=== PATIENT | male | born 1990 | race Caucasian/White ===

== ENCOUNTER 2017-07-27 22:06 | Emergency (ER) | payer MEDICAID, SELFPAY ==
[2017-07-27 22:07] VITALS: BP 144/76; PULSE 108; RESP 16; TEMP 36.4; O2SAT 100; BMI 19.8
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
[2017-07-27] MEDS: HYDROcodone Bitartrate/Apap 5/325 Tablet PO (22:52)
== END 2017-07-27 23:20 | disposition home or self-care (01) ==
PROVIDERS: Emergency Provider Emergency Medicine; Family Provider Nurse Practitioner Primary Care; PCP Nurse Practitioner Primary Care
DX: S13.4XXA Sprain of ligaments of cervical spine, initial encounter (principal); F32.9 Major depressive disorder, single episode, unspecified; Z79.899 Other long term (current) drug therapy; V47.1XXA Car passenger injured in collision with fixed or stationary object in nontraffic accident, initial encounter; Y93.I9 Activity, other involving external motion; Y92.410 Unspecified street and highway as the place of occurrence of the external cause; Y99.8 Other external cause status
CPT/HCPCS: 70450; 72125; 99283

== ENCOUNTER 2017-10-08 21:29 | Emergency (ER) | payer MEDICAID, SELFPAY ==
[2017-10-08 21:30] VITALS: BP 125/72; PULSE 103; RESP 18; TEMP 37.1; O2SAT 100; BMI 17.1
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
[2017-10-08] MEDS: HYDROmorphone 1 MG/ML Syringe IV (22:14)
[2017-10-08] MEDS: proMETHazine 25 MG/ML Syringe 6.25 MG IV (22:14)
[2017-10-08] MEDS: 0.9% Normal Saline 1,000 ML 1000 ML IV (22:14)
[2017-10-08 22:28] LABS: Absolute Lymphocyte Count 3.66 X10^3/ul (0.83-4.51); Absolute Neutrophil Count 5.4 X10^3/uL (2.0-7.7); Basophil# 0.02 X10^3/uL; Basophil% 0.2 % (0-1); Eosinophil# 0.26 X10^3/uL; Eosinophils% 2.5 % (0-5); Hematocrit 44.6 % (40-54); Hemoglobin 16.3 g/dl (13.0-16.5); Lymphocyte # 3.66 X10^3/ul (4.0); Lymphocyte % 35.5 % (19-41); Mean Corp Hgb Conc 36.5 g/gl (32-36); Mean Corpuscular Hgb 30.1 pg (27.0-32.0); Mean Corpuscular Volume 82.3 fL (80-94); Mean Platelet Vol. 10.3 fl (6.2-12.0); Monocyte# 0.92 X10^3/uL; Monocyte% 8.9 % (0-10); Neutrophil # 5.44 X10^3/uL (2.7-7.7); Neutrophil % 52.8 % (47-70); Platelet Count 302 K/mm3 (150-450); RBC Distribution Width CV 12.6 % (11.6-14.6); RBC Distribution Width SD 37.7 fl (35.1-43.9); Red Blood Count 5.42 M/mm3 (4.6-6.2); White Blood Count 10.3 K/mm3 (4.4-11.0)
[2017-10-08 22:30] LABS: POSITIVE COUNT NO; POSITIVE DIFFERENTIAL NO; POSITIVE MORPHOLOGY NO
[2017-10-08 22:56] LABS: ALB/GLOB Ratio 1.4 RATIO (0.9-2.4); AST(SGOT) 10 U/L (15-37); Alanine Aminotransfer ALT/SGPT 18 U/L (16-61); Albumin, Serum 4.6 g/dL (3.2-5.0); Alkaline Phosphatase 125 U/L (45-117); Anion Gap 11 (5-15); BUN 15 mg/dL (7-18); BUN/Creat Ratio 11.1 RATIO (10-20); Calcium,Total 9.5 mg/dL (8.5-10.1); Chloride 104 mmol/L (98-107); Creatinine, Serum 1.35 mg/dL (0.70-1.30); EST Glomerular Filtration Rate 67 mL/min (>60); Est Glom Filt Rate - Afr Amer 81 mL/min (>60); Estimated Creatinine Clearance 68.55 ml/min; Globulin 3.3 g/dL (2.2-4.2); Glucose 102 mg/dL (74-106); Lactic Acid 1.7 mmol/L (0.4-2.0); Lipase 158 U/L (73-393); Potassium 3.2 mmol/L (3.5-5.1); Protein, Total 7.9 g/dL (6.4-8.2); Sodium Level 137 mmol/L (136-145)
--- NOTE | 2017-10-08 23:45 | ED.DCSUM_ITS ---
- ER Visit Summary Date of Service: 10/08/17 Chief Complaint: [] Abdominal pain History of Present Illness: The patient is a 27 M [] complaining of right lower quadrant abdominal pain. Reports nausea, denies vomiting. His mother at the bedside reports that he is homosexual. Patient denies any rectal bleeding or rectal discomfort. He denies fevers. Does report snorting a line of methamphetamine right after the onset of the abdominal pain. He also reports history of panic attacks. Physical Examination: [] Afebrile, vital signs stable. 27-year-old male in no acute distress. Cardiovascular exam is regular rate and rhythm. Lungs are clear to auscultation. Abdomen is soft with right lower quadrant tenderness. No lower extremity edema. Test Results: [] CBC, BMP, LFTs, lipase all within normal limits. Potassium was the only exception at 3.2. CT flank is negative. Emergency Department Course and Treatment: [] Patient given intravenous fluids, Phenergan, Dilaudid. On serial exam had improvement of symptoms. Patient was counseled regarding his diagnostic and laboratory findings and encouraged follow-up with primary care physician. Treatment Plan: [] Follow-up with PCP. Disposition: [] Discharge, stable. Impression: [] Abdominal pain, unknown etiology This note was generated with [employer] dictation software. It may contain incorrect words, spelling, and punctuation that were not noted in review of the chart prior to signing ED Disposition - Plan for ED Patient: Chief Complaint: Flank Pain Referrals: Yoly Banks, VASILIY-C [Primary Care Provider] -
--- NOTE | 2017-10-08 23:45 | ED.DEP ---
ED Disposition - Plan for ED Patient: Disposition: Home or Assisted Living Chief Complaint: Flank Pain Instructions: Abdominal Pain Referrals: Yoly Banks NP-C [Primary Care Provider] -
[2017-10-08 23:55] VITALS: BP 122/81; PULSE 76; RESP 16; O2SAT 99
== END 2017-10-08 23:56 | disposition home or self-care (01) ==
PROVIDERS: Emergency Provider Emergency Medicine; Family Provider Nurse Practitioner Primary Care; PCP Nurse Practitioner Primary Care
DX: R10.31 Right lower quadrant pain (principal); I34.1 Nonrheumatic mitral (valve) prolapse
CPT/HCPCS: 74176; 80053; 83605; 83690; 85025; 96361; 96374; 96375; 99285; J7030; A4216

== ENCOUNTER 2017-12-19 11:44 | Emergency (ER) | payer MEDICAID, SELFPAY ==
[2017-12-19 11:44] VITALS: BP 150/91; PULSE 73; RESP 15; TEMP 35.8; BMI 19.1
--- NOTE | 2017-12-19 12:01 | ED.VISSUMM ---
- ER Visit Summary Date of Service: 12/19/17 Chief Complaint: Dental pain] History of Present Illness: The patient is a 27 M [presents the emergency department complaint of dental pain that started around 8 AM this morning. Patient states that he does not recall any trauma to his tooth. Patient states that he just got clean off of methamphetamines last use was 2 days ago. Patient denies any fevers. He does not have a dentist.] Physical Examination: [HEENT-PERRLA, EOMI. Cranial nerves II through XII grossly intact. TMs clear. Mucous membranes moist. No adenopathy. Dentition-patient has tenderness to the left upper first molar. There is no gingival erythema or abscess. I do not see any obvious caries. Cardiovascular-regular rate and rhythm without murmur or ectopy Lungs-clear to auscultation, chest wall stable without crepitus or subcu emphysema Abdomen-normoactive bowel sounds, soft, nontender, no rebound or rigidity, no peritoneal signs. Extremities-intact ?4, normal range of motion, normal pulses, atraumatic] Test Results: [None indicated] Emergency Department Course and Treatment: [Patient will be started on amoxicillin and he was given a dose of tramadol] Treatment Plan: [Patient will be given a prescription for amoxicillin, tramadol, and referral to dentist] Disposition: [Discharged home in stable condition] Impression: [Dental pain] This note was generated with [employer] dictation software. It may contain incorrect words, spelling, and punctuation that were not noted in review of the chart prior to signing ED Disposition - Plan for ED Patient: Chief Complaint: Dental Referrals: Yoly Banks NP-C [Primary Care Provider] -
--- NOTE | 2017-12-19 12:03 | ED.DEP ---
ED Disposition - Plan for ED Patient: Chief Complaint: Dental Instructions: ED Tooth Pain Prescriptions: traMADol [Ultram] 50 mg PO Q4H PRN PRN 3 Days #20 tab PRN Reason: Pain Amoxicillin 500 mg PO TID #30 tab Referrals: Yoly Banks CERTIFIED RESPIRATORY THERAPIST-C [Primary Care Provider] - Additional Instructions: see a dentist
[2017-12-19] MEDS: traMADol 50 MG Tablet PO (12:05)
[2017-12-19] MEDS: AMOXICILLIN 500 MG CAPSULE PO (12:05)
[2017-12-19 12:06] VITALS: BP 142/95; PULSE 62; RESP 17; O2SAT 100
== END 2017-12-19 12:29 | disposition home or self-care (01) ==
LOC: ED 12:23
PROVIDERS: Emergency Provider Emergency Medicine; Family Provider Nurse Practitioner Primary Care; PCP Nurse Practitioner Primary Care
DX: K08.89 Other specified disorders of teeth and supporting structures (principal); Z72.0 Tobacco use; Z79.899 Other long term (current) drug therapy
CPT/HCPCS: 99282

== ENCOUNTER 2018-03-28 23:59 | Emergency (ER) | payer MEDICAID, SELFPAY ==
[2018-03-29] VITALS: BP 150/103; PULSE 78; RESP 16; TEMP 36.3; O2SAT 100; BMI 19.0
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
[2018-03-29 00:33] VITALS: BP 129/89; PULSE 77; RESP 17; O2SAT 99
== END 2018-03-29 00:39 | disposition home or self-care (01) ==
LOC: ED 03-29 00:37
PROVIDERS: Emergency Provider Emergency Medicine; Family Provider Nurse Practitioner Primary Care; PCP Nurse Practitioner Primary Care
DX: S00.03XA Contusion of scalp, initial encounter (principal); S00.83XA Contusion of other part of head, initial encounter; Z72.0 Tobacco use; Y04.2XXA Assault by strike against or bumped into by another person, initial encounter; Y93.89 Activity, other specified; Y92.89 Other specified places as the place of occurrence of the external cause; Y99.8 Other external cause status
CPT/HCPCS: 99282

== ENCOUNTER 2018-03-29 16:18 | Emergency (ER) | payer MEDICAID, SELFPAY ==
[2018-03-29] VITALS: BMI 19.0
[2018-03-29 16:20] VITALS: BP 142/98; PULSE 56; RESP 14; TEMP 36.6; O2SAT 100; BMI 21.1
--- NOTE | 2018-03-29 16:47 | ED.DEP ---
ED Disposition - Plan for ED Patient: Chief Complaint: Dental Instructions: Dental Trauma Referrals: Yoly Banks NP-C [Primary Care Provider] -
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
[2018-03-29 16:59] VITALS: PULSE 58; RESP 16; O2SAT 99
== END 2018-03-29 17:00 | disposition home or self-care (01) ==
LOC: ED 16:36
PROVIDERS: Emergency Provider Emergency Medicine; Family Provider Nurse Practitioner Primary Care; PCP Nurse Practitioner Primary Care
DX: S02.5XXD Fracture of tooth (traumatic), subsequent encounter for fracture with routine healing (principal); Z72.0 Tobacco use; Z79.891 Long term (current) use of opiate analgesic; Z79.899 Other long term (current) drug therapy; Y09 Assault by unspecified means
CPT/HCPCS: 64402; 99282

== ENCOUNTER 2018-10-04 01:10 | Observation (INO) | payer MEDICAID, SELFPAY ==
[2018-10-04 01:11] VITALS: BP 133/86; PULSE 70; RESP 18; TEMP 36.5; O2SAT 99; BMI 19.6
--- NOTE | 2018-10-04 01:18 | CT_ITS ---
STUDY: CT ABDOMEN AND PELVIS WITH CONTRAST REASON FOR EXAM: Male, 28 years old. Abdominal pain RADIATION DOSAGE (If Supplied By Facility): CTDIvol = ( 8.08 ) mGy, DLP = ( 439.95 ) mGycm TECHNIQUE: Transaxial images were obtained from the dome of the diaphragm to the symphysis pubis with oral contrast. 100ML IV/Oral Isovue 300 was administered. Sagittal and coronal images were reconstructed. Individualized dose optimization techniques were used for this CT. COMPARISON: None. FINDINGS: The visualized lung bases are unremarkable. The visualized portions of the heart are within normal limits. Normal liver. Normal gallbladder and extrahepatic biliary system. Mild splenomegaly 13.1 cm. Normal pancreas. Normal bilateral adrenal glands. Normal right kidney. Normal left kidney. Normal visualized stomach. Normal small intestine. Thickening of the wall of the cecum. There is subcentimeter short axis mesenteric and retroperitoneal lymph nodes. The appendix is visualized and appears normal. Normal abdominal aorta. Normal inferior vena cava. Normal retroperitoneum. Normal urinary bladder. Normal abdominal wall. Normal osseous structures. CT/Abdomen/Pelvis WITH Contrast IMPRESSION: Mild splenomegaly. The appendix is visualized and grossly unremarkable. There is thickening of the wall of the cecum and proximal ascending colon likely related to infectious inflammatory process. Correlate for colitis. Minimal thickening of the terminal ileum. Correlate for any history of inflammatory bowel disease. Recommend follow-up to ensure resolution. Underlying mass cannot be totally excluded. Electronically Signed: Gabriel Meléndez, at 3:59 EDT Tel , Service support ,
--- NOTE | 2018-10-04 01:22 | ED.VISSUMM ---
- ER Visit Summary Date of Service: 10/04/18 Chief Complaint: Abdominal pain History of Present Illness: The patient is a 28 M presenting with abdominal pain. He states this started yesterday. He states he has intermittent pain diffusely in his abdomen. He complains of nausea with no vomiting. He has had mild constipation. He did have a bowel movement yesterday. Denies blood in stool. Denies urinary complaints. Denies fever. He states he ate deer meat yesterday which he believes may have been bad. Denies other complaints. Physical Examination: Vitals are stable. Patient is afebrile. Alert no acute distress. HEENT exam is unremarkable. Neck is supple. Lungs are clear and equal bilaterally. Heart is regular rate and rhythm. Abdomen is soft epigastric and right lower quadrant tenderness with no rebound or guarding Extremities are unremarkable. Skin is warm and dry. Remainder of exam is unremarkable. Emergency Department Course and Treatment: Patient given IV fluids, morphine, Zofran. CBC, chemistries unremarkable. Liver lipase are normal. Urinalysis unremarkable. CT abdomen pelvis shows mild splenomegaly. The appendix is visualized and grossly unremarkable. There is thickening of the wall of the cecum and proximal ascending colon likely related to infectious inflammatory process. Correlate for colitis. Minimal thickening of the terminal ileum. Correlate for any history of inflammatory bowel disease. Recommend follow-up to ensure resolution. Underlying mass cannot be totally excluded. He was given Cipro, Flagyl IV. Patient states he does not feel well enough to go home. Discussed with the hospitalist for observation. Disposition: Observation Impression: Abdominal pain, colitis This note was generated with [employer] dictation software. It may contain incorrect words, spelling, and punctuation that were not noted in review of the chart prior to signing ED Disposition - Plan for ED Patient: Referrals: Yoly Banks, VASILIY-C [Primary Care Provider] -
[2018-10-04 01:30] LABS: Absolute Lymphocyte Count 2.66 X10^3/ul (0.83-4.51); Basophil# 0.02 X10^3/uL; Basophil% 0.2 % (0-1); Eosinophil# 0.28 X10^3/uL; Eosinophils% 3.3 % (0-5); Hematocrit 43.1 % (40-54); Hemoglobin 15.4 g/dl (13.0-16.5); Lymphocyte # 2.66 X10^3/ul (4.0); Lymphocyte % 31.2 % (19-41); Mean Corp Hgb Conc 35.7 g/gl (32-36); Mean Corpuscular Hgb 30.7 pg (27.0-32.0); Mean Platelet Vol. 9.3 fl (6.2-12.0); Monocyte# 0.57 X10^3/uL; Monocyte% 6.7 % (0-10); Neutrophil # 4.99 X10^3/uL (2.7-7.7); Neutrophil % 58.5 % (47-70); Platelet Count 239 K/mm3 (150-450); RBC Distribution Width SD 40.8 fl (35.1-43.9); Red Blood Count 5.01 M/mm3 (4.6-6.2); White Blood Count 8.5 K/mm3 (4.4-11.0)
[2018-10-04] MEDS: 0.9% Normal Saline 1,000 ML 1000 ML IV (01:30)
[2018-10-04] MEDS: Ondansetron 4 MG/2 ML Vial IV (01:30)
[2018-10-04] MEDS: Morphine 4 MG/ML Syringe IV ×2 (01:30→03:57)
[2018-10-04 01:32] LABS: POSITIVE COUNT NO; POSITIVE DIFFERENTIAL NO; POSITIVE MORPHOLOGY NO
[2018-10-04 01:40] LABS: Mucous, Urine 0 SEEN /hpf (<or=2+)
[2018-10-04 01:44] LABS: AST(SGOT) 7 U/L (15-37); Alanine Aminotransfer ALT/SGPT 15 U/L (16-61); Albumin, Serum 3.6 g/dL (3.2-5.0); Alkaline Phosphatase 101 U/L (45-117); Anion Gap 9 (5-15); BUN 8 mg/dL (7-18); BUN/Creat Ratio 7.8 RATIO (10-20); Bilirubin, Direct 0.12 mg/dL (0.00-0.30); Calcium,Total 8.7 mg/dL (8.5-10.1); Chloride 104 mmol/L (98-107); Creatinine, Serum 1.03 mg/dL (0.70-1.30); EST Glomerular Filtration Rate 91 mL/min (>60); Est Glom Filt Rate - Afr Amer 111 mL/min (>60); Estimated Creatinine Clearance 101.94 ml/min; Globulin 3.2 g/dL (2.2-4.2); Glucose 112 mg/dL (74-106); Lipase 122 U/L (73-393); Potassium 3.8 mmol/L (3.5-5.1); Protein, Total 6.8 g/dL (6.4-8.2); Sodium Level 140 mmol/L (136-145)
[2018-10-04 01:44] LABS: Color, Urine Yellow (Yellow); Glucose, Dipstick Normal (Normal); Ketone-Dipstick Negative (Negative); Leukocyte Esterase-Dipstick Negative /ul (Negative); Nitrite-Dipstick Negative (Negative); Occult Blood-Urine 25 /ul (Negative); Protein-Dipstick Negative (Negative); Urine Bilirubin Dipstick Negative (Negative); Urine Clarity Clear (Clear); Urine Urobilinogen Normal (Normal)
[2018-10-04 01:49] LABS: White Blood Cells 0-5 SEEN /hpf (0-5)
[2018-10-04 01:50] LABS: Bacteria RARE /hpf (None Seen); Red Blood Cells-Urine 0-5 SEEN /hpf (0-5); Squamous Epithelial Cells - UA 0-5 SEEN /hpf (0-5)
[2018-10-04 03:42] VITALS: BP 113/96; PULSE 61; RESP 19; O2SAT 98
[2018-10-04] MEDS: metroNIDAZOLE 500 MG/100 ML BAG 100 MG IV (04:40)
[2018-10-04 05:12] VITALS: BMI 19.4
[2018-10-04 05:27] VITALS: BP 122/86; PULSE 51; RESP 16; TEMP 36.6; O2SAT 98
--- NOTE | 2018-10-04 06:08 | PCM.HP.STD ---
Problem List (1) Right lower quadrant abdominal pain Status: Acute History of Present Illness Date of Admission: 10/04/18 Chief Complaint: Right lower quadrant abdominal pain The patient is a 28 year old M seen in the emergency room at [facility] with a chief complaint of right lower quadrant abdominal pain which started on 10/03/2018 between 12 midnight and 3:00 in the morning. Patient did not complain of diarrhea, he had no complaints of blood in the stool, he had no nausea, vomiting, or constipation. Patient states the abdominal pain was intense and that radiated upward from his right lower quadrant to his mid abdominal area. Work-up in the emergency room included labs which showed normal CBC, chemistry panel was also unremarkable. Patient had a CT of the abdomen and pelvis which showed thickening in the cecum and proximal ascending colon indicative of colitis. Patient was admitted to [place] [address] for colitis, he will be placed on IV Cipro and Flagyl, and enteric panel will be obtained-I think it is likely that the patient actually has Crohn's disease and will ultimately need a colonoscopy probably this admission to confirm the diagnosis. Patient will be on a clear liquid diet, he will most likely need to see surgery for a colonoscopy. Past Medical History Allergies banana Allergy (Verified 10/04/18 01:10) Anaphylaxis Home Medications: Ambulatory Orders Medication Instructions Recorded Buspirone HCl 10 mg PO DAILY 10/04/18 Surgical History: noncontributory Psychiatric History: No pertinent psych hx Lives: With Family Smoking Status: Current every day smoker Tobacco Use: Cigarettes Alcohol: None Drugs: None - *Family History Maternal History Items: No pertinent history Paternal History Items: No pertinent history Review of Systems Constitutional: Denies: Anorexia, Chills, Fever, Night Sweats, Malaise, Weakness, Weight Change, Fatigue Eyes: Denies: Cataracts, Conjunctivae Inflammation, Double vision, Drainage HEENT: Denies: Difficulty Swallowing, Dysphasia, Ear Pain, Eye Pain, Hearing Changes, Nasal bleeding, Nasal Congestion, Post Nasal Drip Cardiovascular: Denies: Chest Pain, Claudication, Chest Pressure, Chest Tightness, Edema, Heaviness, Palpitations, Paroxysmal Noc. Dyspnea Respiratory: Denies: Cough, Hemoptysis, Pleuritic Pain, Shortness of Breath, Shortness of breath at rest, Shortness of breath upon exertion Gastrointestinal: Reports: Abdominal Pain - Right lower and right mid abdominal pain. Denies: Constipation, Diarrhea, Dyspepsia, Hematemesis, Hematochezia, Nausea, Melena, Vomiting Genitourinary: Denies: Dysuria, Frequency, Hematuria, Hesitancy, Urgency Musculoskeletal: Denies: Back Pain, Foot Pain, Hand Pain, Joint Pain, Joint stiffness, Joint swelling, Joint Tenderness, Leg Pain Skin: Denies: Dryness, Pruritis, Rash Neurological: Denies: Blurred vision, Double vision, Change in Speech, Slurred speech, Difficulty swallowing, Focal weakness, Headaches, Incoordination, Numbness, Tingling Psychiatric: Denies: Anxiety, Depression, Homicidal Ideations, Suicidal Ideations Endocrine: Denies: Change in Body Habitus, Heat/ Cold Intolerance, Polydipsia, Polyuria Hematologic/ Lymphatic: Denies: Adenopathy, Anemia, Easy Bruising, Easy Bleeding, Petechiae, Purpura VTE Information - Inpt Only VTE Present on Admission: No VTE Mechan Device Prophylaxis: None VTE Pharm Prophylaxis ordered?: No Patient Problems: Active and Suspected Problems Right lower quadrant abdominal pain (Acute) - Physical Exam General: Alert, Oriented x3, Cooperative, No apparent distress, Well developed, Well nourished HEENT: Atraumatic, PERRLA, EOMI, Normocephalic Oral: Moist Mucosa Neck: Supple, No JVD, Negative Carotid Bruits, No Nuchal Rigidity, Trachea Midline Lungs: Clear to auscultation, Normal air movement, No rhonchi, No wheeze, No rales Cardiovascular: Regular rate, Regular Rhythm, Normal S1, Normal S2, No murmurs, No Ectopic Activity, PMI Normal, No rub noted Abdomen: Bowel Sounds Present, Soft, Non-Distended, No Hepato-splenomegaly, Tender - Right lower abdomen is tender to palpation, right midabdomen is also tender to palpation, no rebound abdominal tenderness was noted Extremities: No clubbing, No cyanosis, No edema, Capillary Refill Less than 3 Seconds Skin: No rashes, No breakdown Musculoskeletal: No Tenderness to Palpation of Joints or Extremities Neurological: Cranial nerves II-XII grossly intact, Neuro grossly intact, Motor Exam 5/5 strength throughout, Sensory exam intact to light touch and pain, Coordination normal Psych/Mental Status: Normal Affect, Appropriate, Alert and oriented to time, place, person, mood and affect Vital Signs Temp Pulse Resp BP Pulse Ox 97.8 F 51 L 16 122/86 H 98 10/04/18 05:27 10/04/18 05:27 10/04/18 05:27 10/04/18 05:27 10/04/18 05:27 Oxygen Delivery Method Room Air Weight: 66.8 kg Body Mass Index (BMI) 19.4 Laboratory Tests Past 24 Hrs 10/04/18 10/04/18 10/04/18 01:22 01:22 01:26 WBC 8.5 RBC 5.01 Hgb 15.4 Hct 43.1 MCV 86.0 MCH 30.7 MCHC 35.7 RDW 13.0 RDW Differential 40.8 Plt Count 239 MPV 9.3 Immature Gran % (Auto) 0.100 Neut % (Auto) 58.5 Lymph % (Auto) 31.2 [place] % (Auto) 6.7 Eos % (Auto) 3.3 Baso % (Auto) 0.2 Absolute Neuts (auto) 5.0 Absolute Lymphs (auto) 2.66 Total Counted Not Reportable Sodium 140 Potassium 3.8 Chloride 104 Carbon Dioxide 27.0 Anion Gap 9 BUN 8 Creatinine 1.03 Estim Creat Clear Calc 101.94 Est GFR (MDRD) Af Amer 111 Est GFR (MDRD) Non-Af 91 BUN/Creatinine Ratio 7.8 L Glucose 112 H Calcium 8.7 Total Bilirubin 0.40 Direct Bilirubin 0.12 AST 7 L ALT 15 L Alkaline Phosphatase 101 Total Protein 6.8 Albumin 3.6 Globulin 3.2 Lipase 122 Urine Color Yellow Urine Clarity Clear Urine pH 6.0 Ur Specific [place] 1.020 Urine Protein Negative Urine Glucose (UA) Normal Urine Ketones Negative Urine Occult Blood 25 H Urine Nitrite Negative Urine Bilirubin Negative Urine Urobilinogen Normal Ur Leukocyte Esterase Negative Urine RBC 0-5 SEEN Urine WBC 0-5 SEEN Ur Squamous Epith Cells 0-5 SEEN Urine Bacteria RARE Urine Mucus 0 SEEN Assessment/Plan All Active Problems Right lower quadrant abdominal pain (Acute) #1 colitis of the cecal area and ascending colon-possibly secondary to undiagnosed Crohn's disease versus infective process-patient will be placed in observation status on MedSur, he will receive IV antibiotics, stool will be checked for enteric pathogens. Patient will most likely need a colonoscopy during this admission to confirm a diagnosis of inflammatory bowel disease. Code Visit OBSV E&M: 25978 Initial observation care L3
[2018-10-04 06:36] LABS: Absolute Lymphocyte Count 2.86 X10^3/ul (0.83-4.51); Basophil# 0.01 X10^3/uL; Basophil% 0.1 % (0-1); Eosinophil# 0.24 X10^3/uL; Hematocrit 42.7 % (40-54); Hemoglobin 14.9 g/dl (13.0-16.5); Lymphocyte # 2.86 X10^3/ul (4.0); Lymphocyte % 36.3 % (19-41); Mean Corp Hgb Conc 34.9 g/gl (32-36); Mean Corpuscular Hgb 29.5 pg (27.0-32.0); Mean Corpuscular Volume 84.6 fL (80-94); Mean Platelet Vol. 9.5 fl (6.2-12.0); Monocyte# 0.72 X10^3/uL; Monocyte% 9.1 % (0-10); Neutrophil # 4.03 X10^3/uL (2.7-7.7); Neutrophil % 51.4 % (47-70); Platelet Count 251 K/mm3 (150-450); RBC Distribution Width SD 39.5 fl (35.1-43.9); Red Blood Count 5.05 M/mm3 (4.6-6.2); White Blood Count 7.9 K/mm3 (4.4-11.0)
[2018-10-04 06:44] LABS: POSITIVE COUNT NO; POSITIVE DIFFERENTIAL NO; POSITIVE MORPHOLOGY NO
[2018-10-04 07:00] LABS: ALB/GLOB Ratio 1.2 RATIO (0.9-2.4); AST(SGOT) 7 U/L (15-37); Alanine Aminotransfer ALT/SGPT 16 U/L (16-61); Albumin, Serum 3.5 g/dL (3.2-5.0); Alkaline Phosphatase 100 U/L (45-117); Anion Gap 5 (5-15); BUN 6 mg/dL (7-18); BUN/Creat Ratio 8.3 RATIO (10-20); Calcium,Total 8.6 mg/dL (8.5-10.1); Chloride 104 mmol/L (98-107); Creatinine, Serum 0.73 mg/dL (0.70-1.30); EST Glomerular Filtration Rate 137 mL/min (>60); Est Glom Filt Rate - Afr Amer 165 mL/min (>60); Estimated Creatinine Clearance 142.34 ml/min; Globulin 2.9 g/dL (2.2-4.2); Glucose 92 mg/dL (74-106); Potassium 3.8 mmol/L (3.5-5.1); Protein, Total 6.4 g/dL (6.4-8.2); Sodium Level 138 mmol/L (136-145)
[2018-10-04] MEDS: morphine 10 MG/ML Syringe IV ×4 (07:46→21:29)
[2018-10-04] MEDS: 0.9% NaCl Peripheral Flush Adult/Peds IV ×3 (07:47→17:22)
[2018-10-04] MEDS: Ciprofloxacin 400 MG/200 ML BAG 200 MG IV ×2 (07:50→21:29)
[2018-10-04] MEDS: 0.9% Normal Saline 1,000 ML 125 ML IV ×2 (07:50→17:27)
--- NOTE | 2018-10-04 10:32 | CASEMGMT ---
Social Work Note LINDSAY met with pt as pt is listed as self-pay. SW introduced self and role at [facility]. Pt is alert and orientated x4. Pt states that he lives with family and was previously independent with ADLs. Pt's PCP is Yoly Banks. Pt states that he should have insurance through [employer]. SW informed pt that currently it is listing that he doesn't have insurance. Pt states he will be calling [employer] as he believes he has insurance. Pt states that he has a history of substance abuse and has been using substances since the age of 15. Pt denied currently using any substances. Pt states that he has a history of anxiety and PTSD. Pt states that he is prescribed medication through his PCP and has been to counseling before at [facility] but currently denied receiving counseling services. Pt states he was just at [facility] last year for counseling services. Pt states that he needs to get back into counseling and is receptive to taking list of counseling agencies. SW provided pt with list of counseling agencies, [facility], [facility] [place] [address], RX assistance programs, and [facility]. Pt denied any homicidal/suicidal thoughts/plans/ideations. Vannesa Montes SKIDDER RUNNER, FACER OPERATOR
[2018-10-04 10:59] VITALS: BP 123/84; PULSE 56; RESP 16; TEMP 36.4; O2SAT 100
[2018-10-04 15:39] VITALS: BP 128/82; PULSE 51; RESP 18; TEMP 36.5; O2SAT 99
[2018-10-04] MEDS: Acetaminophen 325 MG Tablet 650 MG PO (19:46)
[2018-10-04 21:40] VITALS: BP 124/72; PULSE 55; RESP 16; TEMP 36.6; O2SAT 97
[2018-10-05] MEDS: 0.9% Normal Saline 1,000 ML 125 ML IV ×3 (02:21→20:02)
[2018-10-05] MEDS: morphine 10 MG/ML Syringe IV (02:21)
[2018-10-05 03:40] VITALS: BP 121/71; PULSE 81; RESP 16; TEMP 36.6; O2SAT 98
[2018-10-05 06:13] LABS: Absolute Lymphocyte Count 2.55 X10^3/ul (0.83-4.51); Absolute Neutrophil Count 3.2 X10^3/uL (2.0-7.7); Basophil# 0.02 X10^3/uL; Basophil% 0.3 % (0-1); Eosinophil# 0.23 X10^3/uL; Eosinophils% 3.4 % (0-5); Hematocrit 42.5 % (40-54); Hemoglobin 12.1 g/dl (13.0-16.5); Lymphocyte # 2.55 X10^3/ul (4.0); Lymphocyte % 37.8 % (19-41); Mean Corp Hgb Conc 28.5 g/gl (32-36); Mean Corpuscular Hgb 24.3 pg (27.0-32.0); Mean Corpuscular Volume 85.3 fL (80-94); Mean Platelet Vol. 9.4 fl (6.2-12.0); Monocyte# 0.69 X10^3/uL; Monocyte% 10.2 % (0-10); Neutrophil # 3.24 X10^3/uL (2.7-7.7); Neutrophil % 48.2 % (47-70); Platelet Count 237 K/mm3 (150-450); RBC Distribution Width SD 40.2 fl (35.1-43.9); Red Blood Count 4.98 M/mm3 (4.6-6.2); White Blood Count 6.7 K/mm3 (4.4-11.0)
[2018-10-05 06:16] LABS: POSITIVE COUNT NO; POSITIVE DIFFERENTIAL NO; POSITIVE MORPHOLOGY NO
[2018-10-05 06:22] LABS: Anion Gap 4 (5-15); BUN 6 mg/dL (7-18); BUN/Creat Ratio 8.5 RATIO (10-20); Calcium,Total 8.5 mg/dL (8.5-10.1); Chloride 105 mmol/L (98-107); EST Glomerular Filtration Rate 142 mL/min (>60); Est Glom Filt Rate - Afr Amer 172 mL/min (>60); Estimated Creatinine Clearance 148.44 ml/min; Glucose 88 mg/dL (74-106); Sodium Level 142 mmol/L (136-145)
[2018-10-05] MEDS: HYDROmorphone 1 MG/ML Syringe IV ×4 (06:51→22:14)
[2018-10-05] MEDS: Acetaminophen 325 MG Tablet 650 MG PO ×2 (08:28→15:06)
[2018-10-05 11:03] VITALS: BP 118/72; PULSE 61; RESP 16; TEMP 36.8; O2SAT 94
[2018-10-05] MEDS: Ciprofloxacin 400 MG/200 ML BAG 200 MG IV ×2 (11:04→22:14)
[2018-10-05] MEDS: predniSONE 20 MG Tablet 40 MG PO (11:06)
--- NOTE | 2018-10-05 12:21 | PCM.PROGNOTE ---
<Brennon Blair - Last Filed: 10/05/18 12:21> Patient Problems: Active and Suspected Problems Right lower quadrant abdominal pain (Acute) Subjective: Pt notes no improvement in RLQ abdominal pain. No BM since admission. Some nausea no vomiting. No fevers or chills. Admits to meth use recently. - Physical Exam General: Alert, Oriented x3, Cooperative HEENT: Atraumatic, PERRLA, EOMI, Normocephalic Neck: Supple, No JVD, Negative Carotid Bruits Lungs: Clear to auscultation, Normal air movement Cardiovascular: Regular rate, No murmurs Abdomen: Soft, Hypoactive Bowel Sounds, Tender Extremities: No edema, Capillary Refill Less than 3 Seconds Skin: No rashes, No breakdown Musculoskeletal: No Tenderness to Palpation of Joints or Extremities Neurological: Cranial nerves II-XII grossly intact Psych/Mental Status: Normal Affect, Appropriate Vital Signs Temp Pulse Resp BP Pulse Ox 98.3 F 61 16 118/72 94 10/05/18 11:03 10/05/18 11:03 10/05/18 11:03 10/05/18 11:03 10/05/18 11:03 Oxygen Delivery Method Room Air Weight: 147 lb 4.301 oz Body Mass Index (BMI) 19.4 Intake and Output for Last 24 Hours 10/03/18 10/04/18 10/05/18 23:59 23:59 23:59 Intake Total 2134 / 2134 Output Total 650 / 650 Balance 1484 / 1484 Laboratory Tests Past 24 Hrs 10/05/18 10/05/18 05:40 05:40 WBC 6.7 RBC 4.98 Hgb 12.1 L Hct 42.5 MCV 85.3 MCH 24.3 L MCHC 28.5 L RDW 13.0 RDW Differential 40.2 Plt Count 237 MPV 9.4 Immature Gran % (Auto) 0.100 Neut % (Auto) 48.2 Lymph % (Auto) 37.8 [place] % (Auto) 10.2 H Eos % (Auto) 3.4 Baso % (Auto) 0.3 Absolute Neuts (auto) 3.2 Absolute Lymphs (auto) 2.55 Total Counted Not Reportable Sodium 142 Potassium 4.0 Chloride 105 Carbon Dioxide 33.0 H Anion Gap 4 L BUN 6 L Creatinine 0.70 Estim Creat Clear Calc 148.44 Est GFR (MDRD) Af Amer 172 Est GFR (MDRD) Non-Af 142 BUN/Creatinine Ratio 8.5 L Glucose 88 Calcium 8.5 Medical Necessity - Tobacco Use Smoking Status: Current every day smoker Tobacco Use: Cigarettes Assessment/Plan All Active Problems Right lower quadrant abdominal pain (Acute) 1. Acute Colitis - suspect ulcerative colitis vs crohns flair. No previous diagnosis. No fever / WBC elevation. No improvement with abx. Continue empiric abx and add prednisone. CT shows inflammation of the ascending colon. 2. Meth abuse - advised cessation DVT ppx: early ambulation DC planning: will need colonoscopy, o/p vs while here This patient was seen by Brennon Blair PA-C under the supervision of Dr. Roche <Giacomo Roche F - Last Filed: 10/05/18 14:23> - Physical Exam Vital Signs Temp Pulse Resp BP Pulse Ox 98.3 F 61 16 118/72 94 10/05/18 11:03 10/05/18 11:03 10/05/18 11:03 10/05/18 11:03 10/05/18 11:03 Oxygen Delivery Method Room Air Weight: 147 lb 4.301 oz Body Mass Index (BMI) 19.4 Intake and Output for Last 24 Hours 10/03/18 10/04/18 10/05/18 23:59 23:59 23:59 Intake Total 2134 / 2134 Output Total 650 / 650 Balance 1484 / 1484 Laboratory Tests Past 24 Hrs 10/05/18 10/05/18 05:40 05:40 WBC 6.7 RBC 4.98 Hgb 12.1 L Hct 42.5 MCV 85.3 MCH 24.3 L MCHC 28.5 L RDW 13.0 RDW Differential 40.2 Plt Count 237 MPV 9.4 Immature Gran % (Auto) 0.100 Neut % (Auto) 48.2 Lymph % (Auto) 37.8 [place] % (Auto) 10.2 H Eos % (Auto) 3.4 Baso % (Auto) 0.3 Absolute Neuts (auto) 3.2 Absolute Lymphs (auto) 2.55 Total Counted Not Reportable Sodium 142 Potassium 4.0 Chloride 105 Carbon Dioxide 33.0 H Anion Gap 4 L BUN 6 L Creatinine 0.70 Estim Creat Clear Calc 148.44 Est GFR (MDRD) Af Amer 172 Est GFR (MDRD) Non-Af 142 BUN/Creatinine Ratio 8.5 L Glucose 88 Calcium 8.5 Code Visit Addendum: Dr. Roche I personally examined the patient and reviewed the chart. I agree with the above. 28-year-old male presenting with right lower quadrant abdominal pain. CT scan shows right colon thickening with a normal appendix. White count has been normal and he has not had a bowel movement to be able to get any stool studies. However he has not had any significant symptom improvement with antibiotics. Given his age we will add prednisone to see if this is more of an inflammatory bowel disease component. We will follow-up in the morning. OBSV E&M: 99156 Subsequent observation care L2
[2018-10-05] MEDS: 0.9% NaCl Peripheral Flush Adult/Peds IV ×2 (13:27→17:56)
--- NOTE | 2018-10-05 15:05 | CASEMGMT ---
Social Work Note RN updated this worker that pt admitted to using meth in his rectum. SW leaving for the day, SW tomorrow can follow up with pt regarding meth use. It should be noted that this worker met with pt yesterday and he denied currently using any substances. Vannesa Montes CEMENT BLOCK MAKER, PLASTIC SHEETS SUPERVISOR
[2018-10-05 16:29] VITALS: BP 118/75; PULSE 60; RESP 16; TEMP 36.7; O2SAT 100
[2018-10-05] MEDS: oxyCODONE 5 MG Tablet PO ×2 (16:31→20:46)
[2018-10-05] MEDS: Ondansetron 4 MG/2 ML Vial IV (17:56)
[2018-10-05 19:58] VITALS: BP 116/70; PULSE 62; RESP 16; TEMP 36.8; O2SAT 98
[2018-10-06] MEDS: Acetaminophen 325 MG Tablet 650 MG PO (01:09)
[2018-10-06 02:00] VITALS: BP 118/68; PULSE 58; RESP 16; TEMP 36.8; O2SAT 99
[2018-10-06] MEDS: 0.9% Normal Saline 1,000 ML 125 ML IV (05:55)
[2018-10-06 07:53] LABS: Anion Gap 8 (5-15); BUN 8 mg/dL (7-18); BUN/Creat Ratio 8.1 RATIO (10-20); Calcium,Total 8.5 mg/dL (8.5-10.1); Chloride 106 mmol/L (98-107); Creatinine, Serum 0.99 mg/dL (0.70-1.30); EST Glomerular Filtration Rate 96 mL/min (>60); Est Glom Filt Rate - Afr Amer 116 mL/min (>60); Estimated Creatinine Clearance 104.96 ml/min; Glucose 150 mg/dL (74-106); Potassium 3.4 mmol/L (3.5-5.1); Sodium Level 142 mmol/L (136-145)
[2018-10-06 08:27] VITALS: BP 122/71; PULSE 54; RESP 16; TEMP 37.3; O2SAT 97
[2018-10-06 08:30] VITALS: PULSE 64
[2018-10-06] MEDS: predniSONE 20 MG Tablet 40 MG PO (08:31)
[2018-10-06] MEDS: Ciprofloxacin 400 MG/200 ML BAG 200 MG IV (09:41)
--- NOTE | 2018-10-06 11:15 | PCA ---
PT REQUESTED TO HAVE NO VISITORS
--- NOTE | 2018-10-06 11:34 | DCINST_ITS ---
- Discharge Diagnoses Current Active Problems: Current Active and Chronic Problems Right lower quadrant abdominal pain (Acute) You will use the following diet at home:: No restrictions Your food should be the consistency of: Regular Your liquids should be the consistency of: Regular/Thin Discharge Activity: Return to Normal Activity, - - Discontinue all illicit drug use Allergies/Adverse Reactions: Allergies banana Allergy (Verified 10/04/18 01:10) Anaphylaxis Medications to take at Discharge Buspirone HCl 10 mg PO DAILY 10/04/18 Acetaminophen [Tylenol Tablet] 650 mg PO Q6H PRN PRN tablet 10/06/18 Ciprofloxacin [Cipro] 500 mg PO BID #5 tab 10/06/18 Metronidazole [Flagyl] 500 mg PO TID #9 tab 10/06/18 Prednisone 10 mg PO UD #22 tab 10/06/18 The following prescriptions were given: Ciprofloxacin [Cipro] 500 mg PO BID #5 tab Metronidazole [Flagyl] 500 mg PO TID #9 tab Prednisone 10 mg PO UD #22 tab Primary Care Physician: Yoly Banks, VASILIY-C [Primary Care Provider] - Please follow up with your Primary Care Physician in: 2 weeks Test Results: Test results from this visit will be discussed in further detail at your follow- up appointment, if applicable. Please Follow Up With: Tremayne Kennedy MD - Call today for an appointment When: 1 week Proposed Discharge Date: 10/06/18
[2018-10-06 12:38] VITALS: BP 134/78; PULSE 83; RESP 16; TEMP 37; O2SAT 97
--- NOTE | 2018-10-06 14:39 | PCM.DC.SUM ---
<Brennon Blair - Last Filed: 10/06/18 14:39> Discharge Date and Diagnosis Date of Admission: 10/04/18 Date of Discharge: 10/06/18 - Primary Discharge Diagnosis Colitis, suspect UC vs Crohns, possible but less likely infectious Meth abuse Nicotine abuse Depression Hospital Course and Treatment Imaging Results: CT/Abdomen/Pelvis WITH Contrast IMPRESSION: Mild splenomegaly. The appendix is visualized and grossly unremarkable. There is thickening of the wall of the cecum and proximal ascending colon likely related to infectious inflammatory process. Correlate for colitis. Minimal thickening of the terminal ileum. Correlate for any history of inflammatory bowel disease. Recommend follow-up to ensure resolution. Underlying mass cannot be totally excluded. Operations: None Procedures: None Summary of Care Provided: Hospital course: The patient is a 28 year old M with past medical history of depression, nicotine abuse, methamphetamine abuse, who presented to the emergency room with right lower quadrant severe abdominal pain. He had no diarrhea or blood in his stool, nausea or vomiting. CT of the abdomen demonstrated colitis, thickening of the wall of the cecum and proximal ascending colon likely related to infectious inflammatory process, concerning for underlying inflammatory bowel disease. He had no fever or leukocytosis. He was treated empirically for infectious colitis. He was admitted to the general medical floor, made n.p.o., and given Cipro and Flagyl. He had no improvement overnight. He was started on oral prednisone the next day. Vital following day he had complete resolution of his abdominal pain. He was strongly advised to have an outpatient colonoscopy. We advised him to follow-up with Dr. Hatfield in 1 week. He will also need to follow-up with his PCP in 1 to 2 weeks. He was given a total of 5 days course of antibiotic therapy to finish when he goes home, and will complete a prednisone taper. He was discharged home in stable condition. This patient was seen by Brennon Blair PA-C under the supervision of Doctor Roche. [] - Physical Exam General: Alert, Oriented x3, Cooperative HEENT: Atraumatic, PERRLA, EOMI, Normocephalic Neck: Supple, No JVD, Negative Carotid Bruits Lungs: Clear to auscultation, Normal air movement Cardiovascular: Regular rate, No murmurs Abdomen: Bowel Sounds Present, Soft, Non Tender Extremities: No edema, Capillary Refill Less than 3 Seconds Skin: No rashes, No breakdown Musculoskeletal: No Tenderness to Palpation of Joints or Extremities Neurological: Cranial nerves II-XII grossly intact Psych/Mental Status: Normal Affect, Appropriate, Alert and oriented to time, place, person, mood and affect Vital Signs Temp Pulse Resp BP Pulse Ox 98.6 F 83 16 134/78 H 97 10/06/18 12:38 10/06/18 12:38 10/06/18 12:38 10/06/18 12:38 10/06/18 12:38 Oxygen Delivery Method Room Air Weight: 147 lb 4.301 oz Body Mass Index (BMI) 19.4 Intake and Output for Last 24 Hours 10/04/18 10/05/18 10/06/18 23:59 23:59 23:59 Intake Total 2134 / 2134 1056 / 1056 2467 / 2467 Output Total 650 / 650 650 / 650 Balance 1484 / 1484 406 / 406 2467 / 2467 Laboratory Tests Past 24 Hrs 10/04/18 10/05/18 10/06/18 06:10 05:40 06:43 Sodium 142 Potassium 3.4 L Chloride 106 Carbon Dioxide 28.0 Anion Gap 8 BUN 8 Creatinine 0.99 Estim Creat Clear Calc 104.96 Est GFR (MDRD) Af Amer 116 Est GFR (MDRD) Non-Af 96 BUN/Creatinine Ratio 8.1 L Glucose 150 H Calcium 8.5 Hepatitis A IgM Ab Pending Hepatitis A Ab Total Pending Hep Bs Antigen Pending Hep B Core Total Ab Pending Hep B Core IgM Ab Pending HIV-1 RNA (PCR) log10 Pending HIV-1 RNA Ultraquant PCR Pending Discharge Diet: No Restrictions, - - advance slowly to normal diet. Discharge Activity: Return to Normal Activity, - - Discontinue all illicit drug use Home Medications: Medications to take at Discharge Buspirone HCl 10 mg PO DAILY 10/04/18 Acetaminophen [Tylenol Tablet] 650 mg PO Q6H PRN PRN tablet 10/06/18 Ciprofloxacin [Cipro] 500 mg PO BID #5 tab 10/06/18 Metronidazole [Flagyl] 500 mg PO TID #9 tab 10/06/18 Prednisone 10 mg PO UD #22 tab 10/06/18 Following Prescrptions Were Given to Patient: Ciprofloxacin [Cipro] 500 mg PO BID #5 tab Metronidazole [Flagyl] 500 mg PO TID #9 tab Prednisone 10 mg PO UD #22 tab Primary Care Physician: Yoly Banks NP-C [Primary Care Provider] - Please follow up with your Primary Care Physician in: 2 weeks Please Follow Up With: Tremayne Kennedy MD - Call today for an appointment When: 1 week Disposition: Home Minutes spent on discharge:: 35 Patient Condition:: Stable Medical Necessity - Tobacco Use Smoking Status: Current every day smoker Tobacco Use: Cigarettes Meaningful Use Info Meaningful Use Diagnoses (Choose all that apply): None applicable <Giacomo Roche F - Last Filed: 10/06/18 17:22> Hospital Course and Treatment Summary of Care Provided: The patient is a 28 year old M [] - Physical Exam Vital Signs Temp Pulse Resp BP Pulse Ox 98.6 F 83 16 134/78 H 97 10/06/18 12:38 10/06/18 12:38 10/06/18 12:38 10/06/18 12:38 10/06/18 12:38 Oxygen Delivery Method Room Air Weight: 147 lb 4.301 oz Body Mass Index (BMI) 19.4 Intake and Output for Last 24 Hours 10/04/18 10/05/18 10/06/18 23:59 23:59 23:59 Intake Total 2134 / 2134 1056 / 1056 2467 / 2467 Output Total 650 / 650 650 / 650 Balance 1484 / 1484 406 / 406 2467 / 2467 Laboratory Tests Past 24 Hrs 10/06/18 06:43 Sodium 142 Potassium 3.4 L Chloride 106 Carbon Dioxide 28.0 Anion Gap 8 BUN 8 Creatinine 0.99 Estim Creat Clear Calc 104.96 Est GFR (MDRD) Af Amer 116 Est GFR (MDRD) Non-Af 96 BUN/Creatinine Ratio 8.1 L Glucose 150 H Calcium 8.5 Code Visit Addendum: Dr. Roche I personally examined the patient and reviewed the chart. I agree with the above. 28-year-old male presented with right lower quadrant abdominal pain and CT scan on admission demonstrated cecal thickening. He did not have any diarrhea however he was started initially on antibiotics and did not improve significantly quickly and therefore he was also started on prednisone and the day after he was given his first dose he was able to finally start tolerating a diet. Given his age it is possible that he is undiagnosed inflammatory bowel disease and therefore he will finish a course of Cipro/Flagyl, but I would also like him to have a course of prednisone as well and to follow-up with general surgery as an outpatient for a outpatient colonoscopy. OBSV E&M: [id number] Observation care discharge
[2018-10-09 14:06] LABS: HEPATITIS B SURFACE AG Negative (Negative); Hepatitis A AB, Total Negative (Negative); Hepatitis A IgM Antibody Negative (Negative); Hepatitis B Core AB IgM Negative (Negative); Hepatitis B Core Ab Total Negative (Negative); Hepatitis C Ab 0.1 s/co ratio (0.0-0.9)
[2018-10-09 16:32] LABS: Hep B Surface Antibodies Reactive (.)
[2018-10-12 12:20] LABS: HIV-1 RNA by PCR, Quant. < 20 copies/mL (.)
== END 2018-10-06 13:13 | disposition home or self-care (01) ==
LOC: ED 01:26 → MS3 04:37
PROVIDERS: Physician Assistant; Admitting Provider Internal Medicine; Emergency Provider Emergency Medicine; Family Provider Nurse Practitioner Primary Care; PCP Nurse Practitioner Primary Care; Referring Provider Internal Medicine; Visit Provider Family Medicine
DX: K52.9 Noninfective gastroenteritis and colitis, unspecified (principal); F15.10 Other stimulant abuse, uncomplicated; F32.9 Major depressive disorder, single episode, unspecified; F17.210 Nicotine dependence, cigarettes, uncomplicated; K59.00 Constipation, unspecified; Z79.899 Other long term (current) drug therapy
CPT/HCPCS: 36415; 74177; 80048; 80053; 80076; 81001; 83690; 85025; 86704; 86705; 86706; 86708; 86709; 86803; 87340; 87536; 96361; 96365; 96366; 96367; 96375; 96376; 97802; 99218; 99284; J7030; Q9967; A4216; G0378; J0744; J2405

== ENCOUNTER 2018-11-09 00:13 | Emergency (ER) | payer MEDICAID, SELFPAY ==
[2018-10-04 05:12] VITALS: BMI 19.4
[2018-11-09 00:14] VITALS: BP 117/70; PULSE 80; RESP 16; TEMP 36.5; O2SAT 97; BMI 19.8
--- NOTE | 2018-11-09 01:30 | ED.VISSUMM ---
- ER Visit Summary Date of Service: 11/09/18 Chief Complaint: Rash History of Present Illness: The patient is a 28 M resents with a rash that has been constant for the past week. Patient states he was doing some weeding outside before the rash began. Patient states the rash is pruritic. Patient states he has been taking Benadryl and white liniment spray for the itching. Patient states the spray helps somewhat. Patient states she is having difficulty sleeping due to the itching. Patient states the rash is localized to the arms and legs. Patient denies any difficulty breathing or difficulty swallowing. Patient denies any nausea or vomiting. Physical Examination: Vital signs are stable. Patient is afebrile. Patient is in no acute distress. [place] is pink and moist. Skin is warm and dry. There is an erythematous papular rash over the upper and lower extremities. There are areas of linear vesicles noted. There is no active drainage. There is some crusting noted. There are no petechia noted. There are no lesions on the palms or soles. Neck is supple. Trachea is midline. There is no JVD noted. Cranial nerves II through XII are intact. There are no focal motor or sensory deficits noted. Emergency Department Course and Treatment: Patient was given a dose of prednisone here. Patient was given prescriptions for prednisone and hydroxyzine. Patient was instructed to follow-up with his primary care physician in 5 to 7 days. Patient understood and was agreeable with the plan. All questions were answered. Disposition: Discharge home Impression: Rhus dermatitis This note was generated with [employer] dictation software. It may contain incorrect words, spelling, and punctuation that were not noted in review of the chart prior to signing ED Disposition - Plan for ED Patient: Disposition: Home or Assisted Living Diagnosis: Rhus dermatitis Instructions: Poison [place] Dermatitis Prescriptions: Hydroxyzine HCl 25 mg PO Q8H PRN PRN #20 tab PRN Reason: Itching Prescription Printed predniSONE tablet 60 mg PO DAILY #15 tab Prescription Printed Referrals: Yoly Banks NP-C [Primary Care Provider] - 5-7 Days
[2018-11-09] MEDS: predniSONE 20 MG Tablet 60 MG PO (01:47)
== END 2018-11-09 01:51 | disposition home or self-care (01) ==
PROVIDERS: Emergency Provider Emergency Medicine; Family Provider Nurse Practitioner Primary Care; PCP Nurse Practitioner Primary Care
DX: L23.7 Allergic contact dermatitis due to plants, except food (principal); Z72.0 Tobacco use
CPT/HCPCS: 99283

== ENCOUNTER 2019-03-13 00:43 | Emergency (ER) | payer MEDICAID, SELFPAY ==
[2019-03-13 00:43] VITALS: BP 141/99; PULSE 84; RESP 18; TEMP 36.8; O2SAT 100; BMI 19.9
--- NOTE | 2019-03-13 01:27 | ED.DCSUM_ITS ---
History of Present Illness Chief Complaint: Dental Informant: Patient Onset: Today Context: Gradual Onset Timing: Waxes and wanes Current Severity: Severe Maximum Severity: Severe Relieved by: - - tylenol Associated Symptoms: Sensitivity Narrative: She is a 28-year-old male presenting with dental pain. Patient states he started having some dental pain yesterday but it had resolved. At 7 PM tonight the pain came back and was quite severe. He describes as throbbing. Is localized over his left upper canine. Patient has a bad tooth that he knows he needs to be pulled. That is where his pain is. He has associated headache. Patient describes the pain as throbbing. Is worse with movement and direct palpation. He does not have a dentist. Denies any other complaints at this time. Is a tobacco smoker. Past Medical History - Allergies and Home Meds Allergies/Adverse Reactions: Allergies banana Allergy (Verified 11/09/18 00:17) Anaphylaxis Primary Care Physician: Yoly Banks NP-C [Primary Care Provider] - Past Medical History: None Surgical History: noncontributory Smoking Status: Current every day smoker - Family History Maternal Family History: Reports: No pertinent history Paternal Family History: Reports: No pertinent history Review of Systems All systems negative except as indicated ENT: Reports: - - dental pain Physical Exam Vital Signs/Narrative: Vital Signs Temp Pulse Resp BP Pulse Ox 03/13/19 00:43 98.3 F 84 18 141/99 H 100 Inital Vital Signs reviewed: Yes General: Well nourished, Well developed Head: Normocephalic, Atraumatic ENT: Moist mucous membranes, No rhinorrhea. Negative for: Sinus tenderness Mouth/Throat: Normal inspection lips/gums, Normal oral mucosa, No focal abscess, Focal dental decay - left upper canine, Tenderness on tooth percussion. Negative for: Focal gum swelling, Trismus Neck: Supple, No lymphadenopathy, Nontender, No JVD Cardiovascular: Regular rate, Regular rhythm, No murmurs Respiratory: No distress, CTA bilaterally, Chest nontender Extremities: Nontender, No edema Skin: Normal color, No rash Neurological: Alert, Oriented x3, Cranial nerves II-XII grossly intact, Normal Strength, Normal Sensation Psychological: Normal affect Diagnostic/Tx/Re-eval - Medical Decision Making Regional and Local Dental Anesthesia: Marcaine - Middle superior alveolar block?left She is evaluated for acute dental pain. He does not have symptoms consistent with exposed nerve root. He is handling his secretions. He is otherwise well- appearing. He does not have an obvious abscess. He is offered a nerve block which he accepts. Patient has significant improvement of his symptoms after this. He is also started on penicillin and Motrin. He is given a dental handout for follow-up. He is counseled to quit smoking. Patient does not have any airway involvement and is stable to follow-up outpatient. Patient is counseled on signs and symptoms requiring return to the emergency room. Patient verbalizes agreement and understand this plan. Patient discharged home in stable and improved condition. ED Disposition - Plan for ED Patient: Disposition: Home or Assisted Living Diagnosis: Dentalgia Instructions: Dental Pain Prescriptions: Ibuprofen [Motrin] 600 mg PO Q6H PRN PRN #20 tab PRN Reason: Pain/Inflammation Prescription Printed Penicillin Vk [Pen-Vee K , V-Cillin K] 500 mg PO 4X/DAY #40 tab Prescription Printed Referrals: Yoly Banks NP-C [Primary Care Provider] - Additional Instructions: Stop smoking. Take medications as prescribed. Is very important follow-up with a dentist in the next few days.
[2019-03-13] MEDS: Bupivacaine 0.5%/Epi 1.8 ML Syringe INFILT (02:01)
[2019-03-13] MEDS: Ibuprofen 600 MG Tablet PO (02:01)
[2019-03-13] MEDS: Penicillin Vk 250 MG Tablet 500 MG PO (02:01)
== END 2019-03-13 02:08 | disposition home or self-care (01) ==
PROVIDERS: Emergency Provider Emergency Medicine; Family Provider Nurse Practitioner Primary Care; PCP Nurse Practitioner Primary Care
DX: K08.89 Other specified disorders of teeth and supporting structures (principal); F17.200 Nicotine dependence, unspecified, uncomplicated
CPT/HCPCS: 64402; 99283

== ENCOUNTER 2024-03-06 22:11 | Emergency (ER) | payer SELFPAY ==
[2024-03-06 22:13] VITALS: BP 192/111; PULSE 65; RESP 18; TEMP 36.7; O2SAT 100; BMI 25.1
--- NOTE | 2024-03-06 22:17 | EKG12_ITS ---
Test Reason : HIGH BP Blood Pressure : */* mmHG Vent. Rate : 61 BPM Atrial Rate : 61 BPM P-R Int : 154 ms QRS Dur : 86 ms QT Int : 432 ms P-R-T Axes : 46 7 1 degrees QTcB Int : 434 ms Normal sinus rhythm Nonspecific T wave abnormality Abnormal ECG Confirmed by NAHOMY GALAN, EVELINA ([id number]), scientific editor CARLO KAHN ([id number]) on 03/08/2024 8:18:50 AM Referred By: ADRI Confirmed By: EVELINA COREA MD
--- NOTE | 2024-03-06 22:17 | RAD_ITS ---
EXAM: XR CHEST, 1 VIEW CLINICAL INDICATION: chest pain TECHNIQUE: Frontal view of the chest. COMPARISON: No relevant prior studies available. FINDINGS: LUNGS AND PLEURAL SPACES: No significant abnormality. No consolidation or edema. No pneumothorax. No effusion. HEART: No significant abnormality. Cardiac silhouette not enlarged. MEDIASTINUM: Central airways and mediastinal contour are unremarkable. BONES/JOINTS: No significant abnormality. No acute fracture. SOFT TISSUES: No significant abnormality. RAD/Chest 1 View (Portable) IMPRESSION: No radiographic evidence of acute cardiopulmonary disease. Electronically Signed: Juancho Vora DO at 22:41 EDT ,
[2024-03-06 22:34] LABS: Absolute Lymphocyte Count 2.55 X10^3/uL (0.83-4.51); Absolute Neutrophil Count 4.1 X10^3/uL (2.0-7.7); Basophil# 0.03 X10^3/uL; Basophil% 0.4 % (0-1); Eosinophil# 0.12 X10^3/uL; Eosinophils% 1.6 % (0-5); Hematocrit 44.5 % (40-54); Hemoglobin 16.3 g/dL (13.0-16.5); Lymphocyte # 2.55 X10^3/ul (0.83-4.51); Lymphocyte % 34.3 % (19-41); Mean Corp Hgb Conc 36.6 g/dL (32-36); Mean Corpuscular Hgb 31.2 pg (27.0-32.0); Mean Corpuscular Volume 85.1 fL (80-94); Mean Platelet Vol. 9.6 fl (6.2-12.0); Monocyte# 0.58 X10^3/uL; Monocyte% 7.8 % (0-10); NRBC Flagged by Analyzer 0 % (0-5); Neutrophil # 4.14 X10^3/uL (2.7-7.7); Neutrophil % 55.8 % (47-70); Platelet Count 248 K/mm3 (150-450); RBC Distribution Width CV 12.1 % (11.6-14.6); RBC Distribution Width SD 37.2 fl (35.1-43.9); Red Blood Count 5.23 M/mm3 (4.6-6.2); White Blood Count 7.4 K/mm3 (4.4-11.0)
[2024-03-06 23:02] LABS: Anion Gap 7 (5-15); BUN 12 mg/dL (7-18); BUN/Creat Ratio 11.4 RATIO (10-20); Calcium,Total 9.2 mg/dL (8.5-10.1); Chloride 104 mmol/L (98-107); Creatinine, Serum 1.05 mg/dL (0.70-1.30); EST Glomerular Filtration Rate 86 mL/min (>60); Est Glom Filt Rate - Afr Amer 104 mL/min (>60); Estimated Creatinine Clearance 113.09 ml/min; Glucose 89 mg/dL (74-106); Potassium 3.9 mmol/L (3.5-5.1); Sodium Level 139 mmol/L (136-145); Troponin-I HS (w/2H Reflex) 6 pg/mL (3.0-78.0)
[2024-03-06 23:19] VITALS: BP 174/111
[2024-03-07 00:30] LABS: Reflex Troponin-HS? (from REC) Y
[2024-03-07] MEDS: LORazepam 2 MG/ML Syringe 1 MG IV (01:05)
[2024-03-07] MEDS: cloNIDine HCl 0.1 MG Tablet PO (01:08)
[2024-03-07 01:16] VITALS: BP 153/100; PULSE 49; RESP 18
[2024-03-07 01:38] LABS: Troponin-I HS 7 pg/mL (3.0-78.0)
--- NOTE | 2024-03-07 02:14 | EDS_ITS ---
HPI History of Present Illness Chief Complaint: Hypertension Informant: patient and parent Narrative Narrative: Patient is a 33-year-old male who reports intermittent bouts of hypertension but states he does not take medication for it. He also reports that he typically drinks 6 beers a night and smokes. He states he was at work this evening when he just felt off and had his blood pressure checked and it was elevated. He states there is no true chest pain headache change in vision or abdominal pain but secondary to his unwell sensation and the elevation to his blood pressure he was sent in for evaluation. The patient does admit to smoking prior to symptoms occurring but otherwise states that he does not drink excessive amounts of caffeine nor does he use illicit drugs [facility] Home Medications ?Medication ?Instructions ?Recorded ?Last Taken ?Type buspirone 10 mg tablet 10 mg PO DAILY anxiety 10/04/18 Unknown History acetaminophen 325 mg tablet 650 mg (2 x 325 mg) PO Q6H PRN PRN 10/06/18 Unknown Rx (Tylenol) Mild Pain (-07/15) ibuprofen 600 mg tablet 600 mg PO Q6H PRN PRN 03/13/19 Unknown Rx Pain/Inflammation #20 tabs penicillin V potassium 250 mg 500 mg (2 x 250 mg) PO 4X/DAY #40 03/13/19 Unknown Rx tablet tabs lisinopril 10 mg tablet 10 mg PO DAILY 30 days #30 tabs 03/07/24 Unknown Rx Allergy/AdvReac Type Severity Reaction Status Date / Time banana Allergy Anaphylaxis Verified 03/06/24 22:13 Social History Smoking Status: Current every day smoker tobacco type: e-cigarettes ROS [facility] ED Constitutional Constitutional ED: Denies chills or fever(s) Eyes Eyes: Denies blurry vision, change in vision or diplopia ENT ENT ED: Denies sore throat Cardiovascular Cardiovascular: Denies chest pain, palpitations or racing heartbeat Respiratory/Chest Respiratory/Chest: Denies cough or dyspnea Gastrointestinal Gastrointestinal: Denies abdominal pain, diarrhea, nausea or vomiting Genitourinary Genitourinary ED: Denies dysuria Musculoskeletal Musculoskeletal: Denies myalgias Integumentary Denies rash Neurologic Neurologic: Denies headache(s) Hematologic/Lymphatic Hematologic/Lymphatic: Denies easy bleeding or easy bruising EXAM Physical Exam Const Vital Signs: 03/06/24 22:13 03/06/24 22:17 03/06/24 23:19 Temperature 98.1 F Temperature Source Temporal Pulse Rate 65 Respiratory Rate 18 Blood Pressure 192/111 H 174/111 H Blood Pressure Mean 138 132 Pulse Ox 100 Oxygen Delivery Method Room Air Room Air 03/07/24 01:16 03/07/24 02:21 Temperature 98.1 F Temperature Source Pulse Rate 49 L 51 L Respiratory Rate 18 18 Blood Pressure 153/100 H 138/91 H Blood Pressure Mean 117 106 Pulse Ox 96 Oxygen Delivery Method Positive well nourished and well developed General Appearance ED: well developed; Negative for pallor HEENT HEENT Narrative: Normocephalic atraumatic Eyes PERRL and EOMs intact bilaterally General Eye ED: Negative for scleral icterus Neck supple Neck Narrative: No nuchal rigidity or meningeal signs Chest Wall palpation of chest normal Resp normal respiratory effort and clear to auscultation bilaterally Cardio regular rate and regular rhythm Rate: other Other Details: Heart is bradycardic rate with regular rhythm No murmurs rubs or gallops Radial and carotid pulses are equal and symmetric No carotid bruit noted GI normal to inspection, nondistended, normoactive bowel sounds, non-tender, non- distended and no masses GI Narrative: No pulsatile mass Auscultation: normoactive bowel sounds Palpation: soft Extremity normal to inspection Extremity Narrative: No asymmetric edema no pitting edema negative Homans' sign bilaterally Neuro oriented x3, CN's II-XII intact bilaterally and no sensory deficits noted Neuro Narrative: GCS of 15 Cranial nerves II through XII are grossly intact there are no focal neurologic deficits No pronator drift no dysmetria no truncal ataxia NIH stroke scale score of 0 Sensorium / Orientation: alert Motor Exam: strength 5/5 throughout Psych mental status grossly normal Skin no rashes or lesions noted General Skin Exam: Negative for jaundice or pallor MDM MDM MDM Narrative Medical decision making narrative: Patient arrived to ER hypertensive otherwise with stable vitals. He denied any excessive stimulant use or illicit drug use as a potential cause. With concern for endorgan damage such as acute coronary syndrome or acute kidney injury I did elect to perform basic laboratory studies with an EKG. EKG showed sinus rhythm without ischemic findings and this correlates with a initial and delta troponin of 6 and 7 which goes against acute coronary syndrome. Creatinine is normal at 1.05 going against [id number]. He is awake alert and oriented with normal neurologic exam going against hypertensive encephalopathy or acute neurologic event. The patient admits to drinking roughly 6 beers per night and states he has not had any for approximately 24 hours and therefore the hypertension could be stimulated by mild/early withdrawal. Patient was given 0.1 mg of oral clonidine as well as 1 mg of IV Ativan. Following this medication blood pressure improved by approximately 25% which is the goal reduction in the ER. His neurologic exam remained normal as well. Therefore do not feel there is need for admission or further evaluation and is otherwise safe for discharge History & Record Review Discussion w/independent historian: Patient and Family Lab Data Attestation: I reviewed the patient's lab results. Labs: Laboratory Results - last 24 hr 03/06/24 03/07/24 22:25 01:14 WBC 7.4 RBC 5.23 Hgb 16.3 Hct 44.5 MCV 85.1 MCH 31.2 MCHC 36.6 H RDW Std Deviation 37.2 RDW Coeff of Martin 12.1 Plt Count 248 MPV 9.6 Immature Gran % (Auto) 0.100 Neut % (Auto) 55.8 Lymph % (Auto) 34.3 [place] % (Auto) 7.8 Eos % (Auto) 1.6 Baso % (Auto) 0.4 Absolute Neuts (auto) 4.1 Absolute Lymphs (auto) 2.55 Nucleated RBC % 0 Sodium 139 Potassium 3.9 Chloride 104 Carbon Dioxide 28.0 Anion Gap 7 BUN 12 Creatinine 1.05 Estim Creat Clear Calc 113.09 Est GFR (MDRD) Af Amer 104 Est GFR (MDRD) Non-Af 86 BUN/Creatinine Ratio 11.4 Glucose 89 Calcium 9.2 Troponin I High Sens 6 7 Radiography Diagnostic Testing: Clinical Impression(s) from Imaging Studies Chest X-Ray 03/06/24 22:17 IMPRESSION: No radiographic evidence of acute cardiopulmonary disease. Electronically Signed: Juancho Vora DO at 22:41 EDT , Chest x-ray as interpreted by the emergency medicine physician reveals no acute infiltrate pneumothorax or pleural effusion Discharge Plan Triage Chief Complaint: Hypertension ED Provider: Gibran Mock Dx/Rx/DC Orders Clinical Impression: Hypertension, Tobacco use, Alcohol use Instructions: Blood Pressure Check Steps, ED Hypertension New Begin Treatment Prescriptions: New lisinopril 10 mg tablet 10 mg PO DAILY 30 Days Qty: 30 1RF No Action buspirone 10 MG tablet 10 mg PO DAILY Patient Comments: TAKE 1 TABLET TWICE DAILY acetaminophen [Tylenol] 325 MG tablet 650 mg PO Q6H PRN PRN (Reason: Mild Pain (-07/15)) 0RF penicillin V potassium 250 MG tablet 500 mg PO 4X/DAY Qty: 40 0RF ibuprofen 600 MG tablet 600 mg PO Q6H PRN PRN (Reason: Pain/Inflammation) Qty: 20 0RF Stand Alone Forms: ED Work / School Excuse Primary Care Provider: Yoly Banks NP Referrals: Yoly Banks NP, [employer] [Primary Care Provider] - Activity Restrictions/Additional Instructions: Please keep a blood pressure journal and begin taking lisinopril for improved blood pressure control. Follow-up with your family doctor to discuss adding or adjusting medications and return to the ER should you have any further concerns Print Language: Armenian Disposition Disposition: Home, Self Care Discharge Date/Time: 03/07/24 02:23
[2024-03-07 02:21] VITALS: BP 138/91; PULSE 51; RESP 18; TEMP 36.7; O2SAT 96
== END 2024-03-07 02:23 | disposition home or self-care (01) ==
PROVIDERS: Emergency Provider Emergency Medicine; PCP Nurse Practitioner Primary Care; Visit Provider Emergency Medicine
DX: I10 Essential (primary) hypertension (principal); F17.290 Nicotine dependence, other tobacco product, uncomplicated; F10.90 Alcohol use, unspecified, uncomplicated
CPT/HCPCS: 71045; 80048; 84484; 85025; 93005; 96374; 99283; A4216